=== PATIENT | female | born 1985 | race Caucasian/White ===

== ENCOUNTER 2024-08-19 20:20 | Emergency (ER) | payer BC ==
[~2024-08-19] VITALS: Ht 170.2 cm; Wt 90.7 kg
[2024-08-19] MEDS ORDERED: TDAP DIPH,PERTUSS,TET VAC/PF 0.5 ML DISP.SYRIN IM ONE (20:40)
[2024-08-19] MEDS: TDAP DIPH,PERTUSS,TET VAC/PF 0.5 ML DISP.SYRIN IM ONE (21:12)
[2024-08-19 21:16] VITALS: BP 128/82; O2SAT 99
== END 2024-08-19 21:17 | disposition home or self-care (01) ==
LOC: ER 20:20
DX: S71.132A Puncture wound without foreign body, left thigh, initial encounter (principal); W57.XXXA Bitten or stung by nonvenomous insect and other nonvenomous arthropods, initial encounter; Y93.89 Activity, other specified; Y92.89 Other specified places as the place of occurrence of the external cause; Y99.8 Other external cause status
CPT/HCPCS: 90715; A4606; A4663